=== PATIENT | female | born 1995 | race Caucasian/White ===

== ENCOUNTER 2016-07-23 11:22 | Outpatient (CLI) | payer OTHER | END 2016-07-23 23:00 | LOC: LAB SRH 11:22 | DX: N91.2 Amenorrhea, unspecified (principal) | CPT/HCPCS: 90004; 90074; 90078; 90261; 90364; 90599; 90600; 90605; 90606; 90710; 90851; 92863; 93140; 98480; 99777 ==

== ENCOUNTER 2016-08-28 14:30 | Emergency (ER) | payer OTHER ==
--- NOTE | 2016-08-28 16:19 | ED NURSING NOTES ---
Clinical Report - Nurses [facility] [place] [address] 08/28/2016 14:30 Patient: GISSEL KOCH TRIAGE Triage time 14:39. Acuity: LEVEL 4. Chief Complaint: NAUSEA and VOMITING. Alert. No acute distress. SEPSIS SCREEN: Sepsis Screen. Negative (no infection suspected/documented). --14:48 Peyton Franco R.N. 14:39 08/28/16. BP: 106/61. HR: 78. RR: 16. O2 saturation: 100%. Temp: 97.4 F. Pain level now: 0/10. --14:48 Peyton Franco R.N. Weight: 77.1 kg stated. Height/Length: 66 inches Per Patient. BMI: 27.4. --14:44 Peyton Franco R.N. Medications Tylenol Oral, PRN. --14:42 Peyton Franco R.N. Zofran Oral 8 mg, as needed. --14:42 Peyton Franco R.N. Medication/allergy information source: the patient. --14:48 Peyton Franco R.N. Allergies No Known Drug Allergy. --14:42 Peyton Franco R.N. History Arrived by private vehicle. Historian: patient. Primary physician (Andrey Pace). Onset. (about 1 weeks ago). ( pt is 14 weeks , started feeling nauseated about a week ago and started throwing up about 24 hours ago. she is trying to keep fluids down and is taking very small sips of water. OB is Toni). Last oral intake by patient was today (very small sips of water). Treatment EDITOR NEWSPAPER: None. PAST MEDICAL HX: Immunizations: up-to-date. Currently : 14 weeks. SURGERY HX: No history of previous surgery. SOCIAL HX: Never smoker. No alcohol use or drug use. SELF HARM ASSESSMENT: A self harm assessment was performed. The patient answered "no" to the question "Do you have thoughts of harming or killing yourself?". FALL RISK ASSESSMENT: Fall risk assessment completed. No fall risk identified. FUNCTIONAL ASSESSMENT: Functional assessment: no impairments noted. LEARNING NEEDS ASSESSMENT: The learning needs assessment revealed no barriers. ABUSE ASSESSMENT: Abuse assessment: ("yes") The patient was asked "Do you feel safe in your home?". NUTRITIONAL RISK ASSESSMENT: The patient has recently had recurrent vomiting. SKIN INTEGRITY ASSESSMENT: Skin integrity risk assessment completed. No skin integrity risk identified. --14:48 Peyton Franco R.N. PROBLEMS: no known problems. PHYSICAL ASSESSMENT Ambulatory to room. Patient gowned. GENERAL / NEURO / PSYCH: Alert. Oriented X 4. Appears in no acute distress. RESPIRATORY: Respirations not labored. Breath sounds within normal limits. CVS: Normal sinus rhythm noted. Capillary refill less than 2 seconds. SKIN: Skin is warm and dry. --14:49 Peyton Franco R.N. NURSING PROGRESS NOTES Patient gowned. Patient identifiers checked. Call light placed in reach. Side rails up. Bed placed in lowest position. Brakes of bed on. Patient ready for evaluation- ED physician notified. --14:50 Peyton Franco R.N. 15:07 08/28/2016 Site #1 started via IV in the right antecubital space with an 20g angiocath, with aseptic technique and good blood return; one attempt. Blood drawn: rainbow set. Labeled in the presence of the patient and sent to the lab. Saline lock flushed with 10 mL saline. --15:07 Peyton Franco R.N. 15:08 08/28/2016 Started bag #1 1000 mL IV Fluids IV NS (Saline); bolus of 1000 mL over 1 hour(s) via site #1 --15:08 Peyton Franco R.N. 15:09 08/28/2016 PHENERGAN (Promethazine HCl) IVP 12.5 mg given. via site #1. Allergies verified and confirmed 5 rights. IV patency established. IV site checked: no pain, redness, or swelling. IV flushed thoroughly pre- and post-medication administration. IVP given by RN. --15:09 Peyton Franco R.N. 16:28 08/28/2016 IV Fluids IV NS Discontinued: bag #1 completed. Total amount infused: 1000 mL. --16:53 Peyton Franco R.N. 16:29 08/28/2016 Started bag #2 1000 mL IV Fluids IV NS (Saline); bolus of 1000 mL over 1 hour(s) via site #1 --16:54 Peyton Franco R.N. 16:54 08/28/2016 Macrobid PO 100 mg given. Allergies verified and confirmed 5 rights. --16:54 Peyton Franco R.N. 17:13 08/28/2016 Site #1 removed upon discharge. Catheter intact. Bandaid applied. --17:13 Peyton Franco R.N. 17:13 08/28/2016 IV Fluids IV NS Discontinued: bag #2 discontinued upon discharge. Total amount infused: 700 mL. --17:13 Peyton Franco R.N. DISPOSITION / DISCHARGE 17:13 08/28/16. BP: 106/62. HR: 76. RR: 16. O2 saturation: 100%. Temp: 98.4 F. Pain level now: 0/10. --17:14 Peyton Franco R.N. Departure time: 17:14. Condition at departure: improved. No learning barriers present. Discharge instructions provided and reviewed with the patient. Reviewed medication(s). Patient verbalized understanding. Written instructions provided in Romanian. The patient was discharged by the physician. She was discharged home and accompanied by public address system installer. She left the Emergency Department ambulatory and via private vehicle. Nurse Clinical driving. --17:15 Peyton Franco R.N. 17:15. Reviewed medication(s) side effects, precautions, dosing and course information. Prescription(s) given to the patient. --19:34 Peyton Franco R.N. Locked/Released at 08/28/2016 19:34 by Peyton Franco R.N.
--- NOTE | 2016-08-28 16:19 | ED CLINICAL REPORT ---
Clinical Report - Physicians/Mid Levels [facility] [address] [place] [address] 08/28/2016 14:30 Patient: GISSEL KOCH Time Seen: 14:39. Arrived- By private vehicle. Historian- patient. HISTORY OF PRESENT ILLNESS Chief Complaint: VOMITING AND 14 WEEKS . Severity: No pelvic pain or bleeding. At its maximum, severity described as 0 / 10. When seen in the E.D., it was gone. Modifying factors- (food and drinking worsen nausea and vimiting). It is described as "pain". This started about 5 days ago and is still present. It was gradual in onset. The patient has had nausea and severe vomiting. No diarrhea. Recent medical care: The patient was seen recently by a health care provider. ( 1 month ago OB appointment, 7 days ago genetic screening US, date would be 14 weeks today approximately.). REVIEW OF SYSTEMS No fever, decreased vision, ear pain, sore throat or chest pain. No cough, difficulty breathing, abdominal pain, black stools or bloody stools. No abnormal bleeding, urinary frequency, back pain, skin rash or difficulty with urination. The patient has missed periods (). PAST HISTORY Dr Washington Illness: None Ops: None Hospitalization: None. SOCIAL HISTORY Never smoker. ADDITIONAL NOTES The nursing notes have been reviewed. PHYSICAL EXAM Vital Signs: 08/28/2016 17:13 BP: 106/62. HR: 76. RR: 16. O2 saturation: 100%. Temp: 98.4 F. Pain level now: 0/10. 08/28/2016 14:39 BP: 106/61. HR: 78. RR: 16. O2 saturation: 100%. Temp: 97.4 F. Pain level now: 0/10. Appearance: Alert. Patient in mild distress. Eyes: Eyes normal inspection. No scleral icterus. ENT: Mildly dry mucous membranes present. Pharynx normal. Neck: Normal inspection. CVS: No cardiac murmur or extra heart sounds. Respiratory: No respiratory distress. Breath sounds normal. Abdomen: Soft and nontender. Bowel sounds normal. (No umbilical or inguinal hernias). Back: No CVA tenderness. Skin: Skin warm. Normal skin color. Extremities: Extremities exhibit normal ROM. No lower extremity edema. Neuro: No alteration in mental status. LABS, X-RAYS, AND EKG Laboratory Tests: UA-Culture if indicated: (BRYANNA: 08/28/2016 16:10) ( [facility] 08/28/2016 16:24) Final results Test Result Flag Units (Reference) URINE COLOR YELLOW URINE APPEARANCE CLEAR URINE GLUCOSE NEGATIVE (NEGATIVE) URINE BILIRUBIN NEGATIVE (NEGATIVE) URINE KETONE 3+ (NEGATIVE) URINE SPECIFIC GRAVITY >= 1.030 (1.010-1.030) URINE PH 6.0 (5.0-8.0) URINE PROTEIN TRACE (NEGATIVE) URINE UROBILINOGEN 1.0 EU/dL (0.2-1.0) URINE NITRITE NEGATIVE (NEGATIVE) URINE BLOOD NEGATIVE (NEGATIVE) URINE LEUK ESTERASE NEGATIVE (NEGATIVE) URINE RBC 0-1 rbc/hpf (0-1) URINE WBC 1-3 wbc/hpf (0-1) URINE EPITHELIAL CELLS 5-10 EPI/hpf (0-5) URINE BACTERIA MODERATE (2+ TO 3+) (NONE SEEN) URINE COMMENT CULTURE INDICATED 1+ MUCOUSURINE CULTURES ARE SET-UP BASED ON THE FOLLOWING CRITERIA:POSITIVE NITRITEPOSITIVE LEUKOCYTE ESTERASEGREATER THAN 10 WHITE BLOOD CELLSMODERATE (2+) OR GREATER BACTERIA CBC w Diff: (BRYANNA: 08/28/2016 14:50) ( [facility] 08/28/2016 15:23) Final results Test Result Flag Units (Reference) WHITE BLOOD COUNT 9.5 K/uL (4.5-11.5) RED BLOOD COUNT 4.40 M/uL (4.00-5.20) HEMOGLOBIN 13.6 gm/dL (12.0-16.0) HEMATOCRIT 39.4 % (36.0-46.0) MEAN CELL VOLUME 90 fL (80-100) MEAN CORPUSCULAR HGB 31 pg (26-34) MEAN CORPUSCULAR HGB CONC 35 g/dL (31-37) RED CELL DISTRIBUTION WIDTH 11.7 % (11.6-14.8) PLATELET COUNT 248 K/uL (150-400) NEUTROPHIL % 79.3 H % (50-75) LYMPH % 14.7 L % (25-40) MONO % 5.5 % (3-14) EOSINOPHIL % 0.2 % (0-4) BASOPHIL % 0.3 % (0-2) CMP: (BRYANNA: 08/28/2016 14:50) ( MsgRcvd 08/28/2016 15:31) Final results Test Result Flag Units (Reference) GLUCOSE 75 mg/dL (70-110) BUN 6 L mg/dL (7-18) CREATININE 0.6 mg/dL (0.6-1.3) Estimated GFR >60 mL/min Estimated GFR- >60 mL/min Note: Persistent reduction over 3 months in eGFR<60 mL/min/1.73 m2 defines CKD. Patients with eGFR values>=60 mL/min/1.73 m2 may also have CKD if evidence ofpersistent proteinuria. Additional information may be foundat www.kidney.org. SODIUM 139 mmol/L (136-145) POTASSIUM 3.5 mmol/L (3.5-5.1) CHLORIDE 102 mmol/L (98-107) CARBON DIOXIDE 23 mmol/L (21-32) CALCIUM 9.3 mg/dL (8.5-10.1) TOTAL PROTEIN 7.7 g/dL (6.4-8.2) ALBUMIN 3.7 g/dL (3.3-5.0) BILIRUBIN, TOTAL 0.5 mg/dL (0.0-1.0) ALKALINE PHOSPHATASE 77 U/L (46-116) AST (SGOT) 16 U/L (15-37) ALT (SGPT) 20 U/L (12-78) Culture, Urine: (BRYANNA: 08/28/2016 16:10) ( MsgRcvd 08/29/2016 10:05) IP Test Result Flag Units (Reference) CULTURE, URINE DATE: 08/29/16 PRELIM REPORT: PRELIMINARY REPORT #1 VERY EARLY GROWTH: VERY EARLY GROWTH: CULTURE TOO YOUNG FOR WORKUP-REINCUBATED . PROGRESS AND PROCEDURES Course of Care: Ms Koch was given phenergan and 2 L of IV NS with good relief. 16:01 08/28/16. I contacted the patient's OB, Dr. Washington. We discussed follow up and the relative benefits of different anti-emetics. He recommended Zofran over other possibilities. She does have asymptomatic bacteruria and will be treated with Macrobid. There was never any uterine cramping or vaginal bleeding. This is not a threatened . Disposition: Discharged. Condition: stable. CLINICAL IMPRESSION Moderate hyperemesis gravidarum less than 21 weeks with volume depletion and ketones. ASYMPTOMATIC BACTRURIA. INSTRUCTIONS (RECHECK IN 12 HOURS IF THE VOMITING PERSISTS.). Prescription Medications: Zofran 8 mg: take 1 orally every 8 hours as needed for nausea and vomiting. Dispense thirty (30). No refill. Macrobid 100 mg: Take 1 capsule orally every 12 hours for 7 days. No refills. Substitution is permissible. Follow-up: Follow up with doctor DR WASHINGTON THIS WEEK. Understanding of the discharge instructions verbalized by patient. (Electronically signed by Andrey Gomez MD 08/30/2016 0:42)
--- NOTE | 2016-08-28 16:19 | ED NURSING NOTES ---
Clinical Report - Nurses [facility] [place] [address] 08/28/2016 14:30 Patient: GISSEL KOCH TRIAGE Triage time 14:39. Acuity: LEVEL 4. Chief Complaint: NAUSEA and VOMITING. Alert. No acute distress. SEPSIS SCREEN: Sepsis Screen. Negative (no infection suspected/documented). --14:48 Peyton Franco R.N. 14:39 08/28/16. BP: 106/61. HR: 78. RR: 16. O2 saturation: 100%. Temp: 97.4 F. Pain level now: 0/10. --14:48 Peyton Franco R.N. Weight: 77.1 kg stated. Height/Length: 66 inches Per Patient. BMI: 27.4. --14:44 Peyton Franco R.N. Medications Tylenol Oral, PRN. --14:42 Peyton Franco R.N. Zofran Oral 8 mg, as needed. --14:42 Peyton Franco R.N. Medication/allergy information source: the patient. --14:48 Peyton Franco R.N. Allergies No Known Drug Allergy. --14:42 Peyton Franco R.N. History Arrived by private vehicle. Historian: patient. Primary physician (Andrey Pace). Onset. (about 1 weeks ago). ( pt is 14 weeks , started feeling nauseated about a week ago and started throwing up about 24 hours ago. she is trying to keep fluids down and is taking very small sips of water. OB is Toni). Last oral intake by patient was today (very small sips of water). Treatment COLLET MAKING MACHINE OPERATOR: None. PAST MEDICAL HX: Immunizations: up-to-date. Currently : 14 weeks. SURGERY HX: No history of previous surgery. SOCIAL HX: Never smoker. No alcohol use or drug use. SELF HARM ASSESSMENT: A self harm assessment was performed. The patient answered "no" to the question "Do you have thoughts of harming or killing yourself?". FALL RISK ASSESSMENT: Fall risk assessment completed. No fall risk identified. FUNCTIONAL ASSESSMENT: Functional assessment: no impairments noted. LEARNING NEEDS ASSESSMENT: The learning needs assessment revealed no barriers. ABUSE ASSESSMENT: Abuse assessment: ("yes") The patient was asked "Do you feel safe in your home?". NUTRITIONAL RISK ASSESSMENT: The patient has recently had recurrent vomiting. SKIN INTEGRITY ASSESSMENT: Skin integrity risk assessment completed. No skin integrity risk identified. --14:48 Peyton Franco R.N. PROBLEMS: no known problems. PHYSICAL ASSESSMENT Ambulatory to room. Patient gowned. GENERAL / NEURO / PSYCH: Alert. Oriented X 4. Appears in no acute distress. RESPIRATORY: Respirations not labored. Breath sounds within normal limits. CVS: Normal sinus rhythm noted. Capillary refill less than 2 seconds. SKIN: Skin is warm and dry. --14:49 Peyton Franco R.N. NURSING PROGRESS NOTES Patient gowned. Patient identifiers checked. Call light placed in reach. Side rails up. Bed placed in lowest position. Brakes of bed on. Patient ready for evaluation- ED physician notified. --14:50 Peyton Franco R.N. 15:07 08/28/2016 Site #1 started via IV in the right antecubital space with an 20g angiocath, with aseptic technique and good blood return; one attempt. Blood drawn: rainbow set. Labeled in the presence of the patient and sent to the lab. Saline lock flushed with 10 mL saline. --15:07 Peyton Franco R.N. 15:08 08/28/2016 Started bag #1 1000 mL IV Fluids IV NS (Saline); bolus of 1000 mL over 1 hour(s) via site #1 --15:08 Peyton Franco R.N. 15:09 08/28/2016 PHENERGAN (Promethazine HCl) IVP 12.5 mg given. via site #1. Allergies verified and confirmed 5 rights. IV patency established. IV site checked: no pain, redness, or swelling. IV flushed thoroughly pre- and post-medication administration. IVP given by RN. --15:09 Peyton Franco R.N. 16:28 08/28/2016 IV Fluids IV NS Discontinued: bag #1 completed. Total amount infused: 1000 mL. --16:53 Peyton Franco R.N. 16:29 08/28/2016 Started bag #2 1000 mL IV Fluids IV NS (Saline); bolus of 1000 mL over 1 hour(s) via site #1 --16:54 Peyton Franco R.N. 16:54 08/28/2016 Macrobid PO 100 mg given. Allergies verified and confirmed 5 rights. --16:54 Peyton Franco R.N. 17:13 08/28/2016 Site #1 removed upon discharge. Catheter intact. Bandaid applied. --17:13 Peyton Franco R.N. 17:13 08/28/2016 IV Fluids IV NS Discontinued: bag #2 discontinued upon discharge. Total amount infused: 700 mL. --17:13 Peyton Franco R.N. DISPOSITION / DISCHARGE 17:13 08/28/16. BP: 106/62. HR: 76. RR: 16. O2 saturation: 100%. Temp: 98.4 F. Pain level now: 0/10. --17:14 Peyton Franco R.N. Departure time: 17:14. Condition at departure: improved. No learning barriers present. Discharge instructions provided and reviewed with the patient. Reviewed medication(s). Patient verbalized understanding. Written instructions provided in [place]. The patient was discharged by the physician. She was discharged home and accompanied by lock technician. She left the Emergency Department ambulatory and via private vehicle. Tobacco Stripper Hand driving. --17:15 Peyton Franco R.N. 17:15. Reviewed medication(s) side effects, precautions, dosing and course information. Prescription(s) given to the patient. --19:34 Peyton Franco R.N. Locked/Released at 08/28/2016 19:34 by Peyton Franco R.N.
--- NOTE | 2016-08-28 16:19 | ED ORDER SUMMARY ---
..... Patient: GISSEL KOCH OrderSheet [facility] VisitID: [id number] [address] [place] [address] 21y, F Registration Date/Time: 08/28/2016 ORDER SHEET Weight: 77.1 kg (stated) Allergies: No Known Drug Allergy GENERAL ORDERS: CBC w Diff Urgent (14:52 08/28/2016 Don PARADA) (Ack 15:06 Dontae) (15:06 JBest R.N.) CMP Urgent (14:52 08/28/2016 Don PARADA) (Ack 15:06 Dontae) (15:06 JBest R.N.) UA-Culture if indicated Urgent (14:52 08/28/2016 Don PARADA) (Ack 15:06 Dontae) (15:09 JBest R.N.) MEDICATION ORDERS: Phenergan IV 6.25+ 6.25 mg IV (NOW) (14:53 08/28/2016 Don PARADA) (15:09 JBest R.N.) Macrobid PO 100 mg (NOW) (16:37 08/28/2016 Don PARADA) (16:54 JBest R.N.) IV FLUIDS: IV NS : initial bolus none -, then 1000 mL/hr for 2h (NOW); Urgent (2 liters of NS) (14:52 08/28/2016 Don PARADA) (15:08 JBest R.N.) ORDER SHEET NOTES: [Electronically signed by Peyton Franco R.N. (19:34 08/28/2016)] [Electronically signed by Andrey Gomez MD (00:42 08/30/2016)] [Electronically locked/signed by Peyton Franco R.N. (19:34 08/28/2016)]
--- NOTE | 2016-08-28 16:19 | ED ORDER SUMMARY ---
..... Patient: GISSEL KOCH OrderSheet [facility] VisitID: [id number] [address] [place], [place] [address] 21y, F Registration Date/Time: 08/28/2016 ORDER SHEET Weight: 77.1 kg (stated) Allergies: No Known Drug Allergy GENERAL ORDERS: CBC w Diff Urgent (14:52 08/28/2016 Don PARADA) (Ack 15:06 Dontae) (15:06 JBest R.N.) CMP Urgent (14:52 08/28/2016 Don PARADA) (Ack 15:06 Dontae) (15:06 JBest R.N.) UA-Culture if indicated Urgent (14:52 08/28/2016 Don PARADA) (Ack 15:06 Dontae) (15:09 JBest R.N.) MEDICATION ORDERS: Phenergan IV 6.25+ 6.25 mg IV (NOW) (14:53 08/28/2016 Don PARADA) (15:09 JBest R.N.) Macrobid PO 100 mg (NOW) (16:37 08/28/2016 Don PARADA) (16:54 JBest R.N.) IV FLUIDS: IV NS : initial bolus none -, then 1000 mL/hr for 2h (NOW); Urgent (2 liters of NS) (14:52 08/28/2016 Don PARADA) (15:08 JBest R.N.) ORDER SHEET NOTES: [Electronically signed by Peyton Franco R.N. (19:34 08/28/2016)] [Electronically signed by Andrey Gomez MD (00:42 08/30/2016)] [Electronically locked/signed by Peyton Franco R.N. (19:34 08/28/2016)]
--- NOTE | 2016-08-30 00:43 | ED DISCHARGE INSTRUCTIONS ---
Patient: GISSEL KOCH General Instructions [facility] VisitID: [id number] [place] [address] 21y, F Registration Date/Time: 08/28/2016 Moderate hyperemesis gravidarum less than 21 weeks with volume depletion and ketones. ASYMPTOMATIC BACTRURIA. INSTRUCTIONS (RECHECK IN 12 HOURS IF THE VOMITING PERSISTS.). Prescription Medications: Zofran 8 mg: take 1 orally every 8 hours as needed for nausea and vomiting. Dispense thirty (30). No refill. Macrobid 100 mg: Take 1 capsule orally every 12 hours for 7 days. No refills. Substitution is permissible. Follow-up: Follow up with doctor DR WASHINGTON THIS WEEK. Understanding of the discharge instructions verbalized by patient. ADDITIONAL INFORMATION Hyperemesis Of Hyperemesis of is a severe form of "morning sickness", where the vomiting is excessive and may cause dehydration and chemical imbalances in the body. It occurs in about 1% of pregnancies, and is usually worse during the 10-12th week of . It gets better by the 16th week. Its cause is not well understood, but may be related to rising hormone levels early in the . It can be a serious threat to mother and fetus if dehydration becomes severe. Therefore, follow the advice below carefully. If symptoms are severe and not controlled by home measures, intravenous fluids and admission to the hospital may be needed. Home Care: 1) Activity a. After awakening from sleep, remain in bed for 15 minutes before getting up. 2) Diet a. Eat frequent small meals rather than 3 large meals. b. A diet high in carbohydrates (starches) and fiber is best. Avoid greasy or spicy foods. c. If you are having trouble keeping down solid foods, drink frequent, small amounts of liquids with electrolytes, such as broth or sports drinks. If nausea and vomiting continue, rest your stomach by waiting 1-2 hours before trying to drink again. d. Keep a log of the foods you eat and how they affect your symptoms. Avoid foods that trigger your symptoms. e. Keep Saltine crackers at the bedside. If you are nauseated upon awakening, eat some crackers or dry toast before getting out of bed. 3) Medicine a. In general, it is best to avoid strong medicines during , especially during the first three months. The effect on the growing baby is not always known and these could cause harm. Your doctor will recommend a prescription medicine only when the symptoms you are having (vomiting and dehydration) are more dangerous to the baby than the small risk of using the medicine. b. Taking Vitamin B6 (pyridoxine), 10-25 mg daily is safe and may be helpful to reduce nausea. c. Check with your doctor before taking any other [id number] or herbal medicines during your . Follow Up: With your doctor within the next few days or as instructed by this facility. Get Prompt Medical Attention if any of the following occur: -- Unable to keep any clear liquids down over a six-hour period -- Worsening weakness, dizziness or fainting occurs -- No weight gain over a two-week period -- Severe constant lower right abdominal pain -- Fever, chills or frequent diarrhea You have been given the following additional information: Hyperemesis Gravidarum (Electronically signed by Andrey Gomez MD 08/30/2016 0:42)
--- NOTE | 2016-08-30 00:43 | ED MED RECONCILIATION SUMMARY ---
Patient: GISSEL KOCH Medication Reconciliation Report [facility] VisitID: [id number] [address] [place] [address] 21y, F Registration Date/Time: 08/28/2016 Weight: 77.1 kg Height/Length: 66 in. BMI: 27.4 ALLERGIES: No Known Drug Allergy The patient's Home Medications are listed below: THE FOLLOWING MEDICATIONS NEED TO BE RECONCILED: Tylenol Oral, PRN Zofran Oral 8 mg The source(s) of the original Home Medication information: patient The following Medications were given to the patient in the Emergency Department: IV NS IV Fluids bolus 1000 mL over 1 hour(s), administered: 08/28/2016 3:08:00 PM PHENERGAN [IVP] IVP 12.5 mg, administered: 08/28/2016 3:09:00 PM IV NS IV Fluids bolus 1000 mL over 1 hour(s), administered: 08/28/2016 4:29:00 PM Macrobid [PO] PO 100 mg, administered: 08/28/2016 4:54:00 PM The following Medications were prescribed to the patient: Zofran 8 mg: take 1 orally every 8 hours as needed for nausea and vomiting. Dispense thirty (30). No refill. -- Andrey Gomez MD Macrobid 100 mg: Take 1 capsule orally every 12 hours for 7 days. No refills. Substitution is permissible. -- Andrey Gomez MD
--- NOTE | 2016-08-30 00:43 | ED DISCHARGE INSTRUCTIONS ---
Patient: GISSEL KOCH General Instructions [facility] VisitID: [id number] [place] [address] 21y, F Registration Date/Time: 08/28/2016 Moderate hyperemesis gravidarum less than 21 weeks with volume depletion and ketones. ASYMPTOMATIC BACTRURIA. INSTRUCTIONS (RECHECK IN 12 HOURS IF THE VOMITING PERSISTS.). Prescription Medications: Zofran 8 mg: take 1 orally every 8 hours as needed for nausea and vomiting. Dispense thirty (30). No refill. Macrobid 100 mg: Take 1 capsule orally every 12 hours for 7 days. No refills. Substitution is permissible. Follow-up: Follow up with doctor DR WASHINGTON THIS WEEK. Understanding of the discharge instructions verbalized by patient. ADDITIONAL INFORMATION Hyperemesis Of Hyperemesis of is a severe form of "morning sickness", where the vomiting is excessive and may cause dehydration and chemical imbalances in the body. It occurs in about 1% of pregnancies, and is usually worse during the 10-12th week of . It gets better by the 16th week. Its cause is not well understood, but may be related to rising hormone levels early in the . It can be a serious threat to mother and fetus if dehydration becomes severe. Therefore, follow the advice below carefully. If symptoms are severe and not controlled by home measures, intravenous fluids and admission to the hospital may be needed. Home Care: 1) Activity a. After awakening from sleep, remain in bed for 15 minutes before getting up. 2) Diet a. Eat frequent small meals rather than 3 large meals. b. A diet high in carbohydrates (starches) and fiber is best. Avoid greasy or spicy foods. c. If you are having trouble keeping down solid foods, drink frequent, small amounts of liquids with electrolytes, such as broth or sports drinks. If nausea and vomiting continue, rest your stomach by waiting 1-2 hours before trying to drink again. d. Keep a log of the foods you eat and how they affect your symptoms. Avoid foods that trigger your symptoms. e. Keep Saltine crackers at the bedside. If you are nauseated upon awakening, eat some crackers or dry toast before getting out of bed. 3) Medicine a. In general, it is best to avoid strong medicines during , especially during the first three months. The effect on the growing baby is not always known and these could cause harm. Your doctor will recommend a prescription medicine only when the symptoms you are having (vomiting and dehydration) are more dangerous to the baby than the small risk of using the medicine. b. Taking Vitamin B6 (pyridoxine), 10-25 mg daily is safe and may be helpful to reduce nausea. c. Check with your doctor before taking any other [id number] or herbal medicines during your . Follow Up: With your doctor within the next few days or as instructed by this facility. Get Prompt Medical Attention if any of the following occur: -- Unable to keep any clear liquids down over a six-hour period -- Worsening weakness, dizziness or fainting occurs -- No weight gain over a two-week period -- Severe constant lower right abdominal pain -- Fever, chills or frequent diarrhea You have been given the following additional information: Hyperemesis Gravidarum (Electronically signed by Andrey Gomez MD 08/30/2016 0:42)
--- NOTE | 2016-08-30 00:43 | ED MAR SUMMARY ---
..... Medication Administration Record [facility] [address] [place] [address] Patient: GISSEL KOCH Visit ID: [id number] 21y, F Weight: 77.1 kg Height/Length: 66 in BMI: 27.4 ALLERGIES: No Known Drug Allergy Start 15:08 08/28/2016 Peyton Franco R.N., Stop 16:28 08/28/2016 Peyton Franco R.N. Medication Administered: IV NS (SALINE), Dose: IV Fluids, Bolus: 1000 mL over 1 hour(s), Dispensed: 1000 mL bag, Site: #1 right AC. Medication Ordered: IV NS : initial bolus none -, then 1000 mL/hr for 2h (NOW); Urgent (2 liters of NS). Given 15:09 08/28/2016 Peyton Franco R.N. Medication Administered: PHENERGAN [IVP] (PROMETHAZINE HCL), Dose: 12.5 mg IVP, Site: #1 right AC. Medication Ordered: Phenergan IV 6.25+ 6.25 mg IV (NOW). Start 16:29 08/28/2016 Peyton Franco R.N., Stop 17:13 08/28/2016 Peyton Franco R.N. Medication Administered: IV NS (SALINE), Dose: IV Fluids, Bolus: 1000 mL over 1 hour(s), Dispensed: 1000 mL bag, Site: #1 right AC. Medication Ordered: IV NS : initial bolus none -, then 1000 mL/hr for 2h (NOW); Urgent (2 liters of NS). Given 16:54 08/28/2016 Peyton Franco R.N. Medication Administered: MACROBID [PO], Dose: 100 mg PO. Medication Ordered: Macrobid PO 100 mg (NOW).
--- NOTE | 2016-08-30 00:43 | ED MED RECONCILIATION SUMMARY ---
Patient: GISSEL KOCH Medication Reconciliation Report [facility] VisitID: [id number] [address] [place] [address] 21y, F Registration Date/Time: 08/28/2016 Weight: 77.1 kg Height/Length: 66 in. BMI: 27.4 ALLERGIES: No Known Drug Allergy The patient's Home Medications are listed below: THE FOLLOWING MEDICATIONS NEED TO BE RECONCILED: Tylenol Oral, PRN Zofran Oral 8 mg The source(s) of the original Home Medication information: patient The following Medications were given to the patient in the Emergency Department: IV NS IV Fluids bolus 1000 mL over 1 hour(s), administered: 08/28/2016 3:08:00 PM PHENERGAN [IVP] IVP 12.5 mg, administered: 08/28/2016 3:09:00 PM IV NS IV Fluids bolus 1000 mL over 1 hour(s), administered: 08/28/2016 4:29:00 PM Macrobid [PO] PO 100 mg, administered: 08/28/2016 4:54:00 PM The following Medications were prescribed to the patient: Zofran 8 mg: take 1 orally every 8 hours as needed for nausea and vomiting. Dispense thirty (30). No refill. -- Andrey Gomez MD Macrobid 100 mg: Take 1 capsule orally every 12 hours for 7 days. No refills. Substitution is permissible. -- Andrey Gomez MD
--- NOTE | 2016-08-30 00:43 | ED MAR SUMMARY ---
..... Medication Administration Record [facility] [address] [place] [address] Patient: GISSEL KOCH Visit ID: [id number] 21y, F Weight: 77.1 kg Height/Length: 66 in BMI: 27.4 ALLERGIES: No Known Drug Allergy Start 15:08 08/28/2016 Peyton Franco R.N., Stop 16:28 08/28/2016 Peyton Franco R.N. Medication Administered: IV NS (SALINE), Dose: IV Fluids, Bolus: 1000 mL over 1 hour(s), Dispensed: 1000 mL bag, Site: #1 right AC. Medication Ordered: IV NS : initial bolus none -, then 1000 mL/hr for 2h (NOW); Urgent (2 liters of NS). Given 15:09 08/28/2016 Peyton Franco R.N. Medication Administered: PHENERGAN [IVP] (PROMETHAZINE HCL), Dose: 12.5 mg IVP, Site: #1 right AC. Medication Ordered: Phenergan IV 6.25+ 6.25 mg IV (NOW). Start 16:29 08/28/2016 Peyton Franco R.N., Stop 17:13 08/28/2016 Peyton Franco R.N. Medication Administered: IV NS (SALINE), Dose: IV Fluids, Bolus: 1000 mL over 1 hour(s), Dispensed: 1000 mL bag, Site: #1 right AC. Medication Ordered: IV NS : initial bolus none -, then 1000 mL/hr for 2h (NOW); Urgent (2 liters of NS). Given 16:54 08/28/2016 Peyton Franco R.N. Medication Administered: MACROBID [PO], Dose: 100 mg PO. Medication Ordered: Macrobid PO 100 mg (NOW).
== END 2016-08-28 17:16 | disposition home or self-care (01) ==
LOC: ED SRH 14:30
DX: O21.1 Hyperemesis gravidarum with metabolic disturbance (principal); E86.9 Volume depletion, unspecified; O23.92 Unspecified genitourinary tract infection in pregnancy, second trimester; R82.71 Bacteriuria; Z3A.14 14 weeks gestation of pregnancy
CPT/HCPCS: 90004; 90100; 90469; 95059

== ENCOUNTER 2016-09-09 21:58 | Emergency (ER) | payer OTHER ==
--- NOTE | 2016-09-09 22:57 | ED ORDER SUMMARY ---
..... Patient: GISSEL KOCH OrderSheet [facility] VisitID: [id number] [place] [address] 21y, F Registration Date/Time: 09/09/2016 ORDER SHEET Weight: 77.1 kg (stated) Allergies: None GENERAL ORDERS: UA-Culture if indicated Urgent (22:16 09/09/2016 EKoroleva P.A.-C) (Ack 22:18 AMcQuoid ER Tech1) (22:39 KKnebel R.N.) Heart Tones (22:16 09/09/2016 EKoroleva P.A.-C) (Ack 22:18 AMcQuoid ER Tech1) (22:54 KKnebel R.N.) Knee Immobilizer (22:54 09/09/2016 EKoroleva P.A.-C) (Cancelled: Other22:54 EKoroleva P.A.-C) Crutches (22:54 09/09/2016 EKoroleva P.A.-C) (Cancelled: Other22:54 EKoroleva P.A.-C) MEDICATION ORDERS: Hydrocodone-APAP PO 5/325 mg (NOW, HIGH ALERT MEDICATION) (22:31 09/09/2016 EKoroleva P.A.-C) (22:42 KKnebel R.N.) IV FLUIDS: ORDER SHEET NOTES: [Electronically signed by Naty DamianAFrida-C (23:03 09/09/2016)] [Electronically signed by Ade Luna R.N. (23:09/09/2016)] [Electronically locked/signed by Ade Luna R.N. (23:08 09/09/2016)]
--- NOTE | 2016-09-09 22:57 | ED CLINICAL REPORT ---
Clinical Report - Physicians/Mid Levels [facility] [address] [place] [address] 09/09/2016 22:00 Patient: GISSEL KOCH Time Seen: 22:59 Sep 09 2016. Arrived- By private vehicle. Historian- patient. HISTORY OF PRESENT ILLNESS Chief Complaint: BACK PAIN. Onset- 7 days and it is still present. It is described as being in the area of the left lower lumbar spine and left SI joint. The quality is noted to be "pain". Quality not similar to prior episodes. No radiation. No bladder dysfunction or bowel dysfunction. Additional history - Patient is about 14 weeks , who reports low back pain. Patient reports prior to her was being treated for fibromyalgia as well as back pain, with numerous medications, however was asked to stop taking his medications due to Woods ability for the fetus. Patient denies any urgency or frequency. Recently in the emergency department for UTI, completed her course of medications.pain worsens with ambulation. Pain worsens with movement. Patient denies an injury. REVIEW OF SYSTEMS No fever, chills, difficulty with urination, urinary frequency or hematuria. No nausea, vomiting or diarrhea. All systems otherwise negative, except as recorded above. PAST HISTORY Problems: Fibromyalgia. Back Pain. Hyperemesis Gravidarum. Medications: Zofran Oral. Allergies: None. SOCIAL HISTORY Never smoker. No alcohol use or drug use. ADDITIONAL NOTES The nursing notes have been reviewed. PHYSICAL EXAM Vital Signs: 09/09/2016 22:06 BP: 121/60. HR: 82. RR: 16. O2 saturation: 98%. Temp: 98.2 F. Pain level now: 8/10. Appearance: Alert. Eyes: Pupils equal, round and reactive to light. ENT: Ears normal. Neck: Normal inspection. CVS: Heart sounds normal. Pulses normal. Respiratory: No respiratory distress. Abdomen: No visible injury. Soft. Gravid uterus. Bowel sounds normal. No mass. No distention. Back: Soft tissue tenderness (left lower gluteus/ lumbar spine). No vertebral point tenderness or CVA tenderness. (full rom of lumbar spine). Skin: Skin warm. Normal skin color. Neuro: Oriented X 3. Mood/affect normal. Straight leg raising: negative on the right and negative on the left. LABS, X-RAYS, AND EKG Laboratory Tests: UA-Culture if indicated: (BRYANNA: 09/09/2016 22:05) ( MsgRcvd 09/09/2016 22:36) Final results Test Result Flag Units (Reference) URINE COLOR YELLOW URINE APPEARANCE CLEAR URINE GLUCOSE NEGATIVE (NEGATIVE) URINE BILIRUBIN NEGATIVE (NEGATIVE) URINE KETONE NEGATIVE (NEGATIVE) URINE SPECIFIC GRAVITY 1.010 (1.010-1.030) URINE PH 6.5 (5.0-8.0) URINE PROTEIN NEGATIVE (NEGATIVE) URINE UROBILINOGEN 0.2 EU/dL (0.2-1.0) URINE NITRITE NEGATIVE (NEGATIVE) URINE BLOOD NEGATIVE (NEGATIVE) URINE LEUK ESTERASE TRACE (NEGATIVE) URINE RBC RARE rbc/hpf (0-1) URINE WBC 0-1 wbc/hpf (0-1) URINE EPITHELIAL CELLS NONE SEEN EPI/hpf (0-5) URINE BACTERIA NONE SEEN (NONE SEEN) URINE COMMENT CULTURE INDICATED URINE CULTURES ARE SET-UP BASED ON THE FOLLOWING CRITERIA:POSITIVE NITRITEPOSITIVE LEUKOCYTE ESTERASEGREATER THAN 10 WHITE BLOOD CELLSMODERATE (2+) OR GREATER BACTERIA . PROGRESS AND PROCEDURES Course of Care: Patient with a uterus. She has been ill with low back pain for the last few years. Discussed options with her, which involve no narcotics, as narcotics are category C. Patient reports she has been extending #pain, hence she is here. Discussed with her use of Tylenol, ice,a TENS unit would be appropriate as mentioned by her boyfriend, as well as lidocaine patches. she has no signs of abdominalsurgical pathology. No midline tenderness. No red flags. Stable. Patient is stable. Symptoms better. Patient/family counseled. Disposition: Discharged. Condition: good. CLINICAL IMPRESSION First trimester . Chronic lumbar back pain. INSTRUCTIONS Apply ice. Limit lifting. Modified duty as described above (limited lifting/ ambulating for 3 days). Prescription Medications: Hydrocodone/APAP 5mg / 325mg: take 1 orally every day as needed for pain. Dispense five (5). No refill. Lidocaine Gel Patches # 6, use one per day. Understanding of the discharge instructions verbalized by patient. Follow-up with: Bigg Muñoz MD, Obstetrics/Gynecology, , [facility], [address] [place] [address] (Electronically signed by Naty Damian P.A.-C 09/09/2016 23:03)
--- NOTE | 2016-09-09 22:57 | ED NURSING NOTES ---
Clinical Report - Nurses [facility] [address] [place] [address] 09/09/2016 22:00 Patient: GISSEL KOCH TRIAGE Triage time 22:06 Sep 09 2016. Chief Complaint: BACK PAIN. Alert. No acute distress. EMERALD COMA SCORE: Emerald Coma Scale: 15- eyes open spontaneously (4); best verbal response- oriented x 4 (5); best motor response- obeys commands (6). --22:10 Ade Luna R.N. 22:06 09/09/16. BP: 121/60. HR: 82. RR: 16. O2 saturation: 98%. Temp: 98.2 F. Pain level now: 01/06. --22:10 Ade Luna R.N. HEART TONES: heart tones present (156 22:53 Sep 09 2016). No heart tones noted left upper quadrant. --22:53 Ade Luna R.N. Weight: 77.1 kg stated. Height/Length: 66 inches Per Patient. BMI: 27.4. --22:12 Ade Luna R.N. Medications Zofran Oral. --22:07 Ade Luna R.N. Allergies None. --22:07 Ade Luna R.N. History Arrived by private vehicle. Historian: patient. Accompanied by (boyfriend). Onset. (about 1 weeks). She has had trouble walking. 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 PAST MEDICAL HX: Tetanus status: up-to-date. Immunizations: up-to-date. Last normal menstrual period- Apr 2016. SOCIAL HX: Never smoker. No alcohol use or drug use. No infectious disease exposure. SELF HARM ASSESSMENT: A self harm assessment was performed. The patient answered "no" to the question "Do you have thoughts of harming or killing yourself?". FALL RISK ASSESSMENT: Fall risk assessment completed. No fall risk identified. NUTRITIONAL RISK ASSESSMENT: The nutritional risk assessment revealed no deficiencies. FUNCTIONAL ASSESSMENT: Functional assessment: no impairments noted. LEARNING NEEDS ASSESSMENT: The learning needs assessment revealed no barriers. ABUSE ASSESSMENT: Abuse assessment: The patient was asked "Do you feel safe in your home?". SKIN INTEGRITY ASSESSMENT: Skin integrity risk assessment completed. No skin integrity risk identified. --22:10 Ade Luna R.N. PROBLEMS: Fibromyalgia. Back Pain. Hyperemesis Gravidarum. . --22:08 Ade Luna R.N. Interventions ID band on patient. To room. --22:10 Ade Luna R.N. PHYSICAL ASSESSMENT GENERAL / NEURO / PSYCH: Alert. Oriented X 4. Appears in pain. RESPIRATORY: Respirations not labored. CVS: Capillary refill less than 2 seconds. GI / : Abdomen soft and nontender. EXTREMITIES: Sensation intact in extremities. BACK: ( left low back/hip pain radiates down leg and feels like spasm). --22:11 Ade Luna R.N. NURSING PROGRESS NOTES Patient gowned. Head of bed elevated. Patient identifiers checked. Call light placed in reach. Side rails up x 1. Bed placed in lowest position. Brakes of bed on. --22:12 Ade Luna R.N. 22:42 09/09/2016 Hydrocodone-APAP (Hydrocodone-Acetaminophen) PO 5/325 mg Tablets 1 tab given. Allergies verified, confirmed 5 rights and sedative warning given to the patient. --22:42 Ade Luna R.N. DISPOSITION / DISCHARGE Departure time: 23:Sep 09 2016. Condition at departure: improved. The following issues were addressed: pain control. No learning barriers present. Discharge instructions provided and reviewed with the patient. Reviewed medication(s) side effects, precautions, dosing and course information. Prescription(s) given to the patient. Reviewed referral to a primary care physician. Patient verbalized understanding. Written instructions provided in Uzbek. The patient was discharged home and accompanied by family. She left the Emergency Department ambulatory and via private vehicle. Family member driving. FALL RISK ASSESSMENT: Fall risk assessment completed. No fall risk identified. --23:07 Ade Luna R.N. 23:05 04/13/17. BP: 102/58. HR: 85. RR: 16. O2 saturation: 100%. Pain level now: 11/06. --23:07 Ade Luna R.N. Locked/Released at 09/09/2016 23:08 by Ade Luna R.N.
--- NOTE | 2016-09-09 22:57 | ED ORDER SUMMARY ---
..... Patient: GISSEL KOCH OrderSheet [facility] VisitID: [id number] [place] [address] 21y, F Registration Date/Time: 09/09/2016 ORDER SHEET Weight: 77.1 kg (stated) Allergies: None GENERAL ORDERS: UA-Culture if indicated Urgent (22:16 09/09/2016 EKoroleva P.A.-C) (Ack 22:18 AMcQuoid ER Tech1) (22:39 KKnebel R.N.) Heart Tones (22:16 09/09/2016 EKoroleva P.A.-C) (Ack 22:18 AMcQuoid ER Tech1) (22:54 KKnebel R.N.) Knee Immobilizer (22:54 09/09/2016 EKoroleva P.A.-C) (Cancelled: Other22:54 EKoroleva P.A.-C) Crutches (22:54 09/09/2016 EKoroleva P.A.-C) (Cancelled: Other22:54 EKoroleva P.A.-C) MEDICATION ORDERS: Hydrocodone-APAP PO 5/325 mg (NOW, HIGH ALERT MEDICATION) (22:31 09/09/2016 EKoroleva P.A.-C) (22:42 KKnebel R.N.) IV FLUIDS: ORDER SHEET NOTES: [Electronically signed by Naty DamianAFrida-C (23:03 09/09/2016)] [Electronically signed by Ade Luna R.N. (23:09/09/2016)] [Electronically locked/signed by Ade Luna R.N. (23:08 09/09/2016)]
--- NOTE | 2016-09-09 22:57 | ED NURSING NOTES ---
Clinical Report - Nurses [facility] [address] [place] [address] 09/09/2016 22:00 Patient: GISSEL KOCH TRIAGE Triage time 22:06 Sep 09 2016. Chief Complaint: BACK PAIN. Alert. No acute distress. EMERALD COMA SCORE: Emerald Coma Scale: 15- eyes open spontaneously (4); best verbal response- oriented x 4 (5); best motor response- obeys commands (6). --22:10 Ade Luna R.N. 22:06 09/09/16. BP: 121/60. HR: 82. RR: 16. O2 saturation: 98%. Temp: 98.2 F. Pain level now: 01/06. --22:10 Ade Luna R.N. HEART TONES: heart tones present (156 22:53 Sep 09 2016). No heart tones noted left upper quadrant. --22:53 Ade Luna R.N. Weight: 77.1 kg stated. Height/Length: 66 inches Per Patient. BMI: 27.4. --22:12 Ade Luna R.N. Medications Zofran Oral. --22:07 Ade Luna R.N. Allergies None. --22:07 Ade Luna R.N. History Arrived by private vehicle. Historian: patient. Accompanied by (boyfriend). Onset. (about 1 weeks). She has had trouble walking. 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 PAST MEDICAL HX: Tetanus status: up-to-date. Immunizations: up-to-date. Last normal menstrual period- Apr 2016. SOCIAL HX: Never smoker. No alcohol use or drug use. No infectious disease exposure. SELF HARM ASSESSMENT: A self harm assessment was performed. The patient answered "no" to the question "Do you have thoughts of harming or killing yourself?". FALL RISK ASSESSMENT: Fall risk assessment completed. No fall risk identified. NUTRITIONAL RISK ASSESSMENT: The nutritional risk assessment revealed no deficiencies. FUNCTIONAL ASSESSMENT: Functional assessment: no impairments noted. LEARNING NEEDS ASSESSMENT: The learning needs assessment revealed no barriers. ABUSE ASSESSMENT: Abuse assessment: The patient was asked "Do you feel safe in your home?". SKIN INTEGRITY ASSESSMENT: Skin integrity risk assessment completed. No skin integrity risk identified. --22:10 Ade Luna R.N. PROBLEMS: Fibromyalgia. Back Pain. Hyperemesis Gravidarum. . --22:08 Ade Luna R.N. Interventions ID band on patient. To room. --22:10 Ade Luna R.N. PHYSICAL ASSESSMENT GENERAL / NEURO / PSYCH: Alert. Oriented X 4. Appears in pain. RESPIRATORY: Respirations not labored. CVS: Capillary refill less than 2 seconds. GI / : Abdomen soft and nontender. EXTREMITIES: Sensation intact in extremities. BACK: ( left low back/hip pain radiates down leg and feels like spasm). --22:11 Ade Luna R.N. NURSING PROGRESS NOTES Patient gowned. Head of bed elevated. Patient identifiers checked. Call light placed in reach. Side rails up x 1. Bed placed in lowest position. Brakes of bed on. --22:12 Ade Luna R.N. 22:42 09/09/2016 Hydrocodone-APAP (Hydrocodone-Acetaminophen) PO 5/325 mg Tablets 1 tab given. Allergies verified, confirmed 5 rights and sedative warning given to the patient. --22:42 Ade Luna R.N. DISPOSITION / DISCHARGE Departure time: 23:Sep 09 2016. Condition at departure: improved. The following issues were addressed: pain control. No learning barriers present. Discharge instructions provided and reviewed with the patient. Reviewed medication(s) side effects, precautions, dosing and course information. Prescription(s) given to the patient. Reviewed referral to a primary care physician. Patient verbalized understanding. Written instructions provided in Chinese. The patient was discharged home and accompanied by family. She left the Emergency Department ambulatory and via private vehicle. Family member driving. FALL RISK ASSESSMENT: Fall risk assessment completed. No fall risk identified. --23:07 Ade Luna R.N. 23:05 04/13/17. BP: 102/58. HR: 85. RR: 16. O2 saturation: 100%. Pain level now: 11/06. --23:07 Ade Luna R.N. Locked/Released at 09/09/2016 23:08 by Ade Luna R.N.
--- NOTE | 2016-09-09 22:57 | ED CLINICAL REPORT ---
Clinical Report - Physicians/Mid Levels [facility] [address] [place] [address] 09/09/2016 22:00 Patient: GISSEL KOCH Time Seen: 22:59 Sep 09 2016. Arrived- By private vehicle. Historian- patient. HISTORY OF PRESENT ILLNESS Chief Complaint: BACK PAIN. Onset- 7 days and it is still present. It is described as being in the area of the left lower lumbar spine and left SI joint. The quality is noted to be "pain". Quality not similar to prior episodes. No radiation. No bladder dysfunction or bowel dysfunction. Additional history - Patient is about 14 weeks , who reports low back pain. Patient reports prior to her was being treated for fibromyalgia as well as back pain, with numerous medications, however was asked to stop taking his medications due to Woods ability for the fetus. Patient denies any urgency or frequency. Recently in the emergency department for UTI, completed her course of medications.pain worsens with ambulation. Pain worsens with movement. Patient denies an injury. REVIEW OF SYSTEMS No fever, chills, difficulty with urination, urinary frequency or hematuria. No nausea, vomiting or diarrhea. All systems otherwise negative, except as recorded above. PAST HISTORY Problems: Fibromyalgia. Back Pain. Hyperemesis Gravidarum. Medications: Zofran Oral. Allergies: None. SOCIAL HISTORY Never smoker. No alcohol use or drug use. ADDITIONAL NOTES The nursing notes have been reviewed. PHYSICAL EXAM Vital Signs: 09/09/2016 22:06 BP: 121/60. HR: 82. RR: 16. O2 saturation: 98%. Temp: 98.2 F. Pain level now: 8/10. Appearance: Alert. Eyes: Pupils equal, round and reactive to light. ENT: Ears normal. Neck: Normal inspection. CVS: Heart sounds normal. Pulses normal. Respiratory: No respiratory distress. Abdomen: No visible injury. Soft. Gravid uterus. Bowel sounds normal. No mass. No distention. Back: Soft tissue tenderness (left lower gluteus/ lumbar spine). No vertebral point tenderness or CVA tenderness. (full rom of lumbar spine). Skin: Skin warm. Normal skin color. Neuro: Oriented X 3. Mood/affect normal. Straight leg raising: negative on the right and negative on the left. LABS, X-RAYS, AND EKG Laboratory Tests: UA-Culture if indicated: (BRYANNA: 09/09/2016 22:05) ( MsgRcvd 09/09/2016 22:36) Final results Test Result Flag Units (Reference) URINE COLOR YELLOW URINE APPEARANCE CLEAR URINE GLUCOSE NEGATIVE (NEGATIVE) URINE BILIRUBIN NEGATIVE (NEGATIVE) URINE KETONE NEGATIVE (NEGATIVE) URINE SPECIFIC GRAVITY 1.010 (1.010-1.030) URINE PH 6.5 (5.0-8.0) URINE PROTEIN NEGATIVE (NEGATIVE) URINE UROBILINOGEN 0.2 EU/dL (0.2-1.0) URINE NITRITE NEGATIVE (NEGATIVE) URINE BLOOD NEGATIVE (NEGATIVE) URINE LEUK ESTERASE TRACE (NEGATIVE) URINE RBC RARE rbc/hpf (0-1) URINE WBC 0-1 wbc/hpf (0-1) URINE EPITHELIAL CELLS NONE SEEN EPI/hpf (0-5) URINE BACTERIA NONE SEEN (NONE SEEN) URINE COMMENT CULTURE INDICATED URINE CULTURES ARE SET-UP BASED ON THE FOLLOWING CRITERIA:POSITIVE NITRITEPOSITIVE LEUKOCYTE ESTERASEGREATER THAN 10 WHITE BLOOD CELLSMODERATE (2+) OR GREATER BACTERIA . PROGRESS AND PROCEDURES Course of Care: Patient with a uterus. She has been ill with low back pain for the last few years. Discussed options with her, which involve no narcotics, as narcotics are category C. Patient reports she has been extending #pain, hence she is here. Discussed with her use of Tylenol, ice,a TENS unit would be appropriate as mentioned by her boyfriend, as well as lidocaine patches. she has no signs of abdominalsurgical pathology. No midline tenderness. No red flags. Stable. Patient is stable. Symptoms better. Patient/family counseled. Disposition: Discharged. Condition: good. CLINICAL IMPRESSION First trimester . Chronic lumbar back pain. INSTRUCTIONS Apply ice. Limit lifting. Modified duty as described above (limited lifting/ ambulating for 3 days). Prescription Medications: Hydrocodone/APAP 5mg / 325mg: take 1 orally every day as needed for pain. Dispense five (5). No refill. Lidocaine Gel Patches # 6, use one per day. Understanding of the discharge instructions verbalized by patient. Follow-up with: Bigg Muñoz MD, Obstetrics/Gynecology, , [facility], [address] [place] [address] (Electronically signed by Naty Damian P.A.-C 09/09/2016 23:03)
--- NOTE | 2016-09-09 23:08 | ED MED RECONCILIATION SUMMARY ---
Patient: GISSEL KOCH Medication Reconciliation Report [facility] VisitID: [id number] [place] [address] 21y, F Registration Date/Time: 09/09/2016 Weight: 77.1 kg Height/Length: 66 in. BMI: 27.4 ALLERGIES: None The patient's Home Medications are listed below: THE FOLLOWING MEDICATIONS NEED TO BE RECONCILED: Zofran Oral The source(s) of the original Home Medication information: Not obtained. The following Medications were given to the patient in the Emergency Department: Hydrocodone-APAP [PO] PO 1 tab, administered: 09/09/2016 10:42:00 PM The following Medications were prescribed to the patient: Hydrocodone/APAP 5mg / 325mg: take 1 orally every day as needed for pain. Dispense five (5). No refill. -- Naty Damian, P.A.-Mara Lidocaine Gel Patches # 6, use one per day. -- Naty Damian, P.A.-C
--- NOTE | 2016-09-09 23:08 | ED MAR SUMMARY ---
..... Medication Administration Record [address] [place] [address] Patient: GISSEL KOCH Visit ID: [id number] 21y, F Weight: 77.1 kg Height/Length: 66 in BMI: 27.4 ALLERGIES: None Given 22:42 09/09/2016 Ade Luna R.N. Medication Administered: HYDROCODONE-APAP [PO] (HYDROCODONE-ACETAMINOPHEN), Dose: 1 tab 5/325 mg Tablets PO. Medication Ordered: Hydrocodone-APAP PO 5/325 mg (NOW, HIGH ALERT MEDICATION).
--- NOTE | 2016-09-09 23:08 | ED MAR SUMMARY ---
..... Medication Administration Record [address] [place] [address] Patient: GISSEL KOCH Visit ID: [id number] 21y, F Weight: 77.1 kg Height/Length: 66 in BMI: 27.4 ALLERGIES: None Given 22:42 09/09/2016 Ade Luna R.N. Medication Administered: HYDROCODONE-APAP [PO] (HYDROCODONE-ACETAMINOPHEN), Dose: 1 tab 5/325 mg Tablets PO. Medication Ordered: Hydrocodone-APAP PO 5/325 mg (NOW, HIGH ALERT MEDICATION).
--- NOTE | 2016-09-09 23:08 | ED DISCHARGE INSTRUCTIONS ---
Patient: GISSEL KOCH General Instructions [facility] VisitID: [id number] [place] [id number] 21y, F Registration Date/Time: 09/09/2016 First trimester . Chronic lumbar back pain. INSTRUCTIONS Apply ice. Limit lifting. Modified duty as described above (limited lifting/ ambulating for 3 days). Prescription Medications: Hydrocodone/APAP 5mg / 325mg: take 1 orally every day as needed for pain. Dispense five (5). No refill. Lidocaine Gel Patches # 6, use one per day. Understanding of the discharge instructions verbalized by patient. Follow-up with: Bigg Muñoz MD, Obstetrics/Gynecology, , [facility], [address] [place] [address] ADDITIONAL INFORMATION Back Pain [Acute Or Chronic] Back pain is usually caused by an injury to the muscles or ligaments of the spine. Sometimes the disks that separate each bone in the spine may bulge and cause pain by pressing on a nearby nerve. Back pain may also appear after a sudden twisting/bending force (such as in a car accident), after a simple awkward movement, or lifting something heavy with poor body positioning. In either case, muscle spasm is often present and adds to the pain. Acute back pain usually gets better in one to two weeks. Back pain related to disk disease, arthritis in the spinal joints or spinal stenosis (narrowing of the spinal canal) can become chronic and last for months or years. Unless you had a physical injury (for example, a car accident or fall) X-rays are usually not ordered for the initial evaluation of back pain. If pain continues and does not respond to medical treatment, x-rays and other tests may be performed at a later time. Home Care: You may need to stay in bed the first few days. But, as soon as possible, begin sitting or walking to avoid problems with prolonged bed rest (muscle weakness, worsening back stiffness and pain, blood clots in the legs). When in bed, try to find a position of comfort. A firm mattress is best. Try lying flat on your back with pillows under your knees. You can also try lying on your side with your knees bent up towards your chest and a pillow between your knees. Avoid prolonged sitting. This puts more stress on the lower back than standing or walking. During the first two days after injury, apply an ICE PACK to the painful area for 20 minutes every 2-4 hours. This will reduce swelling and pain. HEAT (hot shower, hot bath or heating pad) works well for muscle spasm. You can start with ice, then switch to heat after two days. Some patients feel best alternating ice and heat treatments. Use the one method that feels the best to you. You may use acetaminophen (Tylenol) or ibuprofen (Motrin, Advil) to control pain, unless another pain medicine was prescribed. [NOTE: If you have chronic liver or kidney disease or ever had a stomach ulcer or GI bleeding, talk with your doctor before using these medicines.] Be aware of safe lifting methods and do not lift anything over 15 pounds until all the pain is gone. Follow Up with your doctor or this facility if your symptoms do not start to improve after one week. Physical therapy may be needed. [NOTE: If X-rays were taken, they will be reviewed by a radiologist. You will be notified of any new findings that may affect your care.] Get Prompt Medical Attention if any of the following occur: Pain becomes worse or spreads to your legs Weakness or numbness in one or both legs Loss of bowel or bladder control Numbness in the groin or genital area Hydrocodone Bitartrate, Acetaminophen Oral tablet What is this medicine? ACETAMINOPHEN; HYDROCODONE (a set a JEROME deya fen; eddie droe KOE done) is a pain reliever. It is used to treat mild to moderate pain. How should I use this medicine? Take this medicine by mouth. Swallow it with a full glass of water. Follow the directions on the prescription label. If the medicine upsets your stomach, take the medicine with food or milk. Do not take more than you are told to take. Talk to your client integration manager regarding the use of this medicine in children. This medicine is not approved for use in children. What side effects may I notice from receiving this medicine? Side effects that you should report to your doctor or health healthcare advisory services manager as soon as possible: allergic reactions like skin rash, itching or hives, swelling of the face, lips, or tongue breathing problems confusion feeling faint or lightheaded, falls stomach pain yellowing of the eyes or skin Side effects that usually do not require medical attention (report to your doctor or health healthcare advisory services manager if they continue or are bothersome): nausea, vomiting stomach upset What may interact with this medicine? alcohol antihistamines isoniazid medicines for depression, anxiety, or psychotic disturbances medicines for sleep muscle relaxants naltrexone narcotic medicines (opiates) for pain phenobarbital ritonavir tramadol What if I miss a dose? If you miss a dose, take it as soon as you can. If it is almost time for your next dose, take only that dose. Do not take double or extra doses. Where should I keep my medicine? Keep out of the reach of children. This medicine can be abused. Keep your medicine in a safe place to protect it from theft. Do not share this medicine with anyone. Selling or giving away this medicine is dangerous and against the law. Store at room temperature between 15 and 30 degrees C (59 and 86 degrees F). Protect from light. Keep container tightly closed. Throw away any unused medicine after the expiration date. Discard unused medicine and used packaging carefully. Pets and children can be harmed if they find used or lost packages. What should I tell my health care provider before I take this medicine? They need to know if you have any of these conditions: brain tumor Crohn's disease, inflammatory bowel disease, or ulcerative colitis drink more than 3 alcohol-containing drinks per day drug abuse or addiction head injury heart or circulation problems kidney disease or problems going to the bathroom liver disease lung disease, asthma, or breathing problems an unusual or allergic reaction to acetaminophen, hydrocodone, other opioid analgesics, other medicines, foods, dyes, or preservatives or trying to get breast-feeding What should I watch for while using this medicine? Tell your doctor or health healthcare advisory services manager if your pain does not go away, if it gets worse, or if you have new or a different type of pain. You may develop tolerance to the medicine. Tolerance means that you will need a higher dose of the medicine for pain relief. Tolerance is normal and is expected if you take the medicine for a long time. Do not suddenly stop taking your medicine because you may develop a severe reaction. Your body becomes used to the medicine. This does NOT mean you are addicted. Addiction is a behavior related to getting and using a drug for a non-medical reason. If you have pain, you have a medical reason to take pain medicine. Your doctor will tell you how much medicine to take. If your doctor wants you to stop the medicine, the dose will be slowly lowered over time to avoid any side effects. You may get drowsy or dizzy when you first start taking the medicine or change doses. Do not drive, use machinery, or do anything that may be dangerous until you know how the medicine affects you. Stand or sit up slowly. There are different types of narcotic medicines (opiates) for pain. If you take more than one type at the same time, you may have more side effects. Give your health care provider a list of all medicines you use. Your doctor will tell you how much medicine to take. Do not take more medicine than directed. Call emergency for help if you have problems breathing. The medicine will cause constipation. Try to have a bowel movement at least every 2 to 3 days. If you do not have a bowel movement for 3 days, call your doctor or health healthcare advisory services manager. Too much acetaminophen can be very dangerous. Do not take Tylenol (acetaminophen) or medicines that contain acetaminophen with this medicine. Many non-prescription medicines contain acetaminophen. Always read the labels carefully. You have been given the following additional information: Back Pain (Acute Or Chronic) Hydrocodone Bitartrate, Acetaminophen Oral tablet Limit lifting. Modified duty as described above (limited lifting/ ambulating for 3 days). (Electronically signed by Naty Damian P.A.-C 09/09/2016 23:03)
--- NOTE | 2016-09-09 23:08 | ED DISCHARGE INSTRUCTIONS ---
Patient: GISSEL KOCH General Instructions [facility] VisitID: [id number] [place] [phone] 21y, F Registration Date/Time: 09/09/2016 First trimester . Chronic lumbar back pain. INSTRUCTIONS Apply ice. Limit lifting. Modified duty as described above (limited lifting/ ambulating for 3 days). Prescription Medications: Hydrocodone/APAP 5mg / 325mg: take 1 orally every day as needed for pain. Dispense five (5). No refill. Lidocaine Gel Patches # 6, use one per day. Understanding of the discharge instructions verbalized by patient. Follow-up with: Bigg Muñoz MD, Obstetrics/Gynecology, , [facility], [address] [place] [address] ADDITIONAL INFORMATION Back Pain [Acute Or Chronic] Back pain is usually caused by an injury to the muscles or ligaments of the spine. Sometimes the disks that separate each bone in the spine may bulge and cause pain by pressing on a nearby nerve. Back pain may also appear after a sudden twisting/bending force (such as in a car accident), after a simple awkward movement, or lifting something heavy with poor body positioning. In either case, muscle spasm is often present and adds to the pain. Acute back pain usually gets better in one to two weeks. Back pain related to disk disease, arthritis in the spinal joints or spinal stenosis (narrowing of the spinal canal) can become chronic and last for months or years. Unless you had a physical injury (for example, a car accident or fall) X-rays are usually not ordered for the initial evaluation of back pain. If pain continues and does not respond to medical treatment, x-rays and other tests may be performed at a later time. Home Care: You may need to stay in bed the first few days. But, as soon as possible, begin sitting or walking to avoid problems with prolonged bed rest (muscle weakness, worsening back stiffness and pain, blood clots in the legs). When in bed, try to find a position of comfort. A firm mattress is best. Try lying flat on your back with pillows under your knees. You can also try lying on your side with your knees bent up towards your chest and a pillow between your knees. Avoid prolonged sitting. This puts more stress on the lower back than standing or walking. During the first two days after injury, apply an ICE PACK to the painful area for 20 minutes every 2-4 hours. This will reduce swelling and pain. HEAT (hot shower, hot bath or heating pad) works well for muscle spasm. You can start with ice, then switch to heat after two days. Some patients feel best alternating ice and heat treatments. Use the one method that feels the best to you. You may use acetaminophen (Tylenol) or ibuprofen (Motrin, Advil) to control pain, unless another pain medicine was prescribed. [NOTE: If you have chronic liver or kidney disease or ever had a stomach ulcer or GI bleeding, talk with your doctor before using these medicines.] Be aware of safe lifting methods and do not lift anything over 15 pounds until all the pain is gone. Follow Up with your doctor or this facility if your symptoms do not start to improve after one week. Physical therapy may be needed. [NOTE: If X-rays were taken, they will be reviewed by a radiologist. You will be notified of any new findings that may affect your care.] Get Prompt Medical Attention if any of the following occur: Pain becomes worse or spreads to your legs Weakness or numbness in one or both legs Loss of bowel or bladder control Numbness in the groin or genital area Hydrocodone Bitartrate, Acetaminophen Oral tablet What is this medicine? ACETAMINOPHEN; HYDROCODONE (a set a JEROME deya fen; eddie droe KOE done) is a pain reliever. It is used to treat mild to moderate pain. How should I use this medicine? Take this medicine by mouth. Swallow it with a full glass of water. Follow the directions on the prescription label. If the medicine upsets your stomach, take the medicine with food or milk. Do not take more than you are told to take. Talk to your plant clerk regarding the use of this medicine in children. This medicine is not approved for use in children. What side effects may I notice from receiving this medicine? Side effects that you should report to your doctor or health career and technology education teacher as soon as possible: allergic reactions like skin rash, itching or hives, swelling of the face, lips, or tongue breathing problems confusion feeling faint or lightheaded, falls stomach pain yellowing of the eyes or skin Side effects that usually do not require medical attention (report to your doctor or health career and technology education teacher if they continue or are bothersome): nausea, vomiting stomach upset What may interact with this medicine? alcohol antihistamines isoniazid medicines for depression, anxiety, or psychotic disturbances medicines for sleep muscle relaxants naltrexone narcotic medicines (opiates) for pain phenobarbital ritonavir tramadol What if I miss a dose? If you miss a dose, take it as soon as you can. If it is almost time for your next dose, take only that dose. Do not take double or extra doses. Where should I keep my medicine? Keep out of the reach of children. This medicine can be abused. Keep your medicine in a safe place to protect it from theft. Do not share this medicine with anyone. Selling or giving away this medicine is dangerous and against the law. Store at room temperature between 15 and 30 degrees C (59 and 86 degrees F). Protect from light. Keep container tightly closed. Throw away any unused medicine after the expiration date. Discard unused medicine and used packaging carefully. Pets and children can be harmed if they find used or lost packages. What should I tell my health care provider before I take this medicine? They need to know if you have any of these conditions: brain tumor Crohn's disease, inflammatory bowel disease, or ulcerative colitis drink more than 3 alcohol-containing drinks per day drug abuse or addiction head injury heart or circulation problems kidney disease or problems going to the bathroom liver disease lung disease, asthma, or breathing problems an unusual or allergic reaction to acetaminophen, hydrocodone, other opioid analgesics, other medicines, foods, dyes, or preservatives or trying to get breast-feeding What should I watch for while using this medicine? Tell your doctor or health career and technology education teacher if your pain does not go away, if it gets worse, or if you have new or a different type of pain. You may develop tolerance to the medicine. Tolerance means that you will need a higher dose of the medicine for pain relief. Tolerance is normal and is expected if you take the medicine for a long time. Do not suddenly stop taking your medicine because you may develop a severe reaction. Your body becomes used to the medicine. This does NOT mean you are addicted. Addiction is a behavior related to getting and using a drug for a non-medical reason. If you have pain, you have a medical reason to take pain medicine. Your doctor will tell you how much medicine to take. If your doctor wants you to stop the medicine, the dose will be slowly lowered over time to avoid any side effects. You may get drowsy or dizzy when you first start taking the medicine or change doses. Do not drive, use machinery, or do anything that may be dangerous until you know how the medicine affects you. Stand or sit up slowly. There are different types of narcotic medicines (opiates) for pain. If you take more than one type at the same time, you may have more side effects. Give your health care provider a list of all medicines you use. Your doctor will tell you how much medicine to take. Do not take more medicine than directed. Call emergency for help if you have problems breathing. The medicine will cause constipation. Try to have a bowel movement at least every 2 to 3 days. If you do not have a bowel movement for 3 days, call your doctor or health career and technology education teacher. Too much acetaminophen can be very dangerous. Do not take Tylenol (acetaminophen) or medicines that contain acetaminophen with this medicine. Many non-prescription medicines contain acetaminophen. Always read the labels carefully. You have been given the following additional information: Back Pain (Acute Or Chronic) Hydrocodone Bitartrate, Acetaminophen Oral tablet Limit lifting. Modified duty as described above (limited lifting/ ambulating for 3 days). (Electronically signed by Naty Damian P.A.-C 09/09/2016 23:03)
--- NOTE | 2016-09-09 23:08 | ED MED RECONCILIATION SUMMARY ---
Patient: GISSEL KOCH Medication Reconciliation Report [facility] VisitID: [id number] [place] [address] 21y, F Registration Date/Time: 09/09/2016 Weight: 77.1 kg Height/Length: 66 in. BMI: 27.4 ALLERGIES: None The patient's Home Medications are listed below: THE FOLLOWING MEDICATIONS NEED TO BE RECONCILED: Zofran Oral The source(s) of the original Home Medication information: Not obtained. The following Medications were given to the patient in the Emergency Department: Hydrocodone-APAP [PO] PO 1 tab, administered: 09/09/2016 10:42:00 PM The following Medications were prescribed to the patient: Hydrocodone/APAP 5mg / 325mg: take 1 orally every day as needed for pain. Dispense five (5). No refill. -- Naty Damian, P.A.-Mara Lidocaine Gel Patches # 6, use one per day. -- Naty Damian, P.A.-C
== END 2016-09-09 23:05 | disposition home or self-care (01) ==
LOC: ED SRH 21:58
DX: M54.5 Low back pain (principal); G89.29 Other chronic pain; Z33.1 Pregnant state, incidental; Z3A.14 14 weeks gestation of pregnancy; Z79.899 Other long term (current) drug therapy
CPT/HCPCS: 90004; 90469

== ENCOUNTER 2016-10-04 15:57 | Outpatient (CLI) | payer OTHER ==
--- NOTE | 2016-10-04 17:17 | DIAGNOSTIC IMAGING REPORT ---
PROCEDURE: US OB DETAILED ANATOMIC INDICATION: ANATOMY TECHNIQUE: Mcknight scale, color, and spectral Doppler images of the second trimester gravid uterus were obtained. COMPARISON: None during this FINDINGS: A single living intrauterine is in breech presentation. There is regular cardiac activity at a rate of 135 beats per minute. The placenta is anterior and away from the internal cervical os. The cervix is closed measuring approximately 3.9 cm in length. The amniotic fluid volume is subjectively normal. Biparietal diameter 4.0 cm, 18 weeks 1 day Head circumference 15.9 cm, 18 weeks 5 days Abdominal circumference 13.7 cm, 19 weeks 1 day Femur length 3.0 cm, 19 weeks 2 days Head to abdominal circumference ratio and femur length to abdominal circumference ratios are normal. Estimated weight 275 g plus/minus 41 g Composite gestational age 18 weeks 6 days There was visualization of a number of normal structures including the intracranial contents, facial features, nuchal region, spine, four-chamber heart and outflow tracts to the extent that could be visualized, diaphragm, fluid-filled stomach, kidneys, abdomen, urinary bladder, upper and lower extremities, and genitals. A three-vessel umbilical cord, normal and placental cord insertion sites were seen. IMPRESSION: 1. Single living intrauterine with a composite gestational age of 18 weeks 6 days and estimated due date 03/01/2017. 2. Symmetric growth and normal anatomy.
== END 2016-10-04 23:00 ==
LOC: US SRH 15:57
DX: Z34.92 Encounter for supervision of normal pregnancy, unspecified, second trimester (principal); Z3A.18 18 weeks gestation of pregnancy